=== PATIENT | female | born 1950 | race Caucasian/White ===

== ENCOUNTER → 2018-02-02 | Outpatient (CLI) | payer MEDICARE | END | disposition home or self-care (01) | LOC: CFH 09:21 | PROVIDERS: ATTEND Otolaryngology | DX: J34.2 Deviated nasal septum (principal); J32.0 Chronic maxillary sinusitis; R49.0 Dysphonia; J34.3 Hypertrophy of nasal turbinates | CPT/HCPCS: 70486; 74220 ==

== ENCOUNTER → 2018-07-08 | Outpatient (CLI) | payer MEDICARE | END | disposition home or self-care (01) | LOC: CFH 10:43 | PROVIDERS: ATTEND Family Medicine | DX: Z12.31 Encounter for screening mammogram for malignant neoplasm of breast (principal) | CPT/HCPCS: 77067 ==

== ENCOUNTER → 2019-07-19 | Outpatient (CLI) | payer MEDICARE | END | disposition home or self-care (01) | LOC: CFH 13:04 | PROVIDERS: ATTEND Family Medicine | DX: Z12.31 Encounter for screening mammogram for malignant neoplasm of breast (principal); N64.89 Other specified disorders of breast; N95.9 Unspecified menopausal and perimenopausal disorder | CPT/HCPCS: 76641; 77063; 77067; 77080 ==

== ENCOUNTER → 2020-09-05 | Outpatient (CLI) | payer MEDICARE | END | disposition home or self-care (01) | LOC: CFH 14:22 | PROVIDERS: ATTEND Family Medicine | DX: Z12.39 Encounter for other screening for malignant neoplasm of breast (principal); Z12.31 Encounter for screening mammogram for malignant neoplasm of breast | CPT/HCPCS: 76641; 77063; 77067 ==

== ENCOUNTER 2021-04-18 12:53 | Inpatient (IN) | payer MEDICARE ==
[~2021-04-18] VITALS: Ht 162.6 cm; Wt 62.7 kg
[2021-04-18] VITALS (17 sets, daily range): BP systolic 134–163; BP diastolic 64–74
--- NOTE | 2021-04-18 13:18 | NUR ---
FISHER TROT LINE: EKG COMPLETE IN TRIAGE.
[2021-04-18 14:02] LABS: ALBUMIN 3.6 g/dL (3.4-5.0); ANION GAP 6 mmol/L (5-15); CALCIUM 8.9 mg/dL (8.5-10.1); CHLORIDE 110 mmol/L (98-107)
[2021-04-18 14:07] LABS: MEAN CORPUSCULAR HEMOGLOBIN 18.8 pg (27.0-34.8); MEAN PLATELET VOLUME 8.1 fL (7.4-10.4); PLATELET COUNT 392 x10^3/uL (130-400); RED BLOOD COUNT 2.41 x10^6/uL (3.82-5.3); RED CELL DISTRIBUTION WIDTH 23.3 % (9.6-15.2)
[2021-04-18 14:09] LABS: ALANINE AMINOTRANSFERASE 19 U/L (12-78); ALKALINE PHOSPHATASE 66 U/L (45-117); BILIRUBIN,TOTAL 0.5 mg/dL (0.2-1.0); CREATININE 1.13 mg/dL (0.55-1.02); TOTAL PROTEIN 7.3 g/dL (6.4-8.2); TROPONIN I < 0.015 ng/mL (0.000-0.045)
--- NOTE | 2021-04-18 14:33 | NUR ---
feed adviser: Pt to room via WC from lobby at this time.
[2021-04-18 14:38] LABS: LYMPH#(MANUAL) 0.89 x10^3/uL (1-3.4); LYMPHS% (MANUAL) 12 % (22-44); MONOS#(MANUAL) 0.67 x10^3/uL (0.3-2.7); MONOS% (MANUAL) 9 % (2-9); SEG#(MANUAL) 5.85 x10^3/uL (1.8-6.8); SEGS% (MANUAL) 79 % (42-75)
[2021-04-18 14:40] LABS: ANISOCYTOSIS 2+; HYPOCHROMIA 2+; MICROCYTOSIS 2+
[2021-04-18 14:41] LABS: OVALOCYTES 2+; POLYCHROMASIA 1+
[2021-04-18 14:42] LABS: <PLATELET ESTIMATE> ADEQUATE; <PLT MORPHOLOGY> NORMAL PLT MORPH
[2021-04-18] MEDS ORDERED: PANTOPRAZOLE 40 MG IV IVPush ONE (15:00)
[2021-04-18] MEDS ORDERED: SODIUM CHLORIDE 0.9% 1,000ML IVBOLUS ONE (15:00)
[2021-04-18] MEDS ORDERED: PANTOPRAZOLE 40 MG IV ONE (15:11)
--- NOTE | 2021-04-18 15:16 | NUR ---
REQUEST FOR BLOOD SENT.
--- NOTE | 2021-04-18 15:46 | NUR ---
REPORT TO KENDY TURPIN FOR LUNCH RELIEF.
[2021-04-18 15:48] LABS: ABSOLUTE RETICS # 0.077 x10^6/uL (0.5-2.5); RED BLOOD COUNT 2.38 x10^6/uL (3.82-5.3); RETICULOCYTE COUNT % 3.23 % (0.5-1.5)
[2021-04-18 15:56] LABS: INTERNATIONAL NORMALIZED RATIO 1.04 (0.93-1.1); PROTHROMBIN TIME 11.1 Seconds (9.6-11.5)
--- NOTE | 2021-04-18 16:20 | NUR ---
PT TALKING WITH JANIE ALLAN NOTED AT THIS TIME. IV BLOOD TRANSFUSING. SIDE RAILS UP, CALL LIGHT IN REACH.
[2021-04-18] MEDS ORDERED: ONDANSETRON 2MG/ML, 2ML IVPush PRN (16:30)
[2021-04-18] MEDS ORDERED: hydrALAzine 20 MG/ML, 1ML IVPush PRN (16:30)
[2021-04-18] MEDS ORDERED: ACETAMINOPHEN 325 MG TABLET PO PRN (16:30)
--- NOTE | 2021-04-18 17:02 | NUR ---
Pt up to bedside commode prior to transfer for pt comfort. pt transferring with blood infusing.
[2021-04-18] MEDS ORDERED: ROSU20TA29 PO (19:15)
[2021-04-18] MEDS ORDERED: LEVO50TA PO (19:15)
[2021-04-18] MEDS ORDERED: PANTOPRAZOLE 40 MG IV IVPush SCH (21:00)
[2021-04-18] MEDS: TOLTERODINE LA 2MG CAP.ER.24H PO SCH (21:06)
[2021-04-18] MEDS: SODIUM CHLORIDE FLUSH 10ML SYR IVF SCH (21:08)
[2021-04-18] MEDS: THIAMINE 100 MG in SODIUM CHLORIDE 0.9% 50 ML IV SCH (21:49)
[2021-04-18] MEDS: PANTOPRAZOLE 80 MG in SODIUM CHLORIDE 0.9% 100 ML IV SCH (22:26)
[2021-04-18 22:30] LABS: MICROSCOPIC NOT IND
[2021-04-19 02:00] VITALS: BP 150/72
[2021-04-19 05:03] LABS: MEAN CORPUSCULAR HEMOGLOBIN 23.3 pg (27.0-34.8); MEAN CORPUSCULAR HGB CONC 32.7 g/dL (32.4-35.8); MEAN PLATELET VOLUME 8.4 fL (7.4-10.4); PLATELET COUNT 282 x10^3/uL (130-400); RED BLOOD COUNT 3.32 x10^6/uL (3.82-5.3); RED CELL DISTRIBUTION WIDTH 24.6 % (9.6-15.2)
[2021-04-19 05:16] LABS: CHLORIDE 112 mmol/L (98-107)
[2021-04-19 05:23] LABS: ALANINE AMINOTRANSFERASE 16 U/L (12-78); ALKALINE PHOSPHATASE 57 U/L (45-117); ANION GAP 5 mmol/L (5-15); BILIRUBIN,TOTAL 1.6 mg/dL (0.2-1.0); CALCIUM 8.2 mg/dL (8.5-10.1); CREATININE 0.93 mg/dL (0.55-1.02); TOTAL PROTEIN 6.2 g/dL (6.4-8.2)
[2021-04-19 05:48] LABS: ANISOCYTOSIS 2+; BASOS#(MANUAL) 0.07 x10^3/uL (0-0.1); BASOS% (MANUAL) 1 % (0-1); EOS#(MANUAL) 0.21 x10^3/uL (0.0-0.4); EOS% (MANUAL) 3 % (1-7); HYPOCHROMIA 2+; LYMPH#(MANUAL) 1.12 x10^3/uL (1-3.4); LYMPHS% (MANUAL) 16 % (22-44); MICROCYTOSIS 2+; MONOS#(MANUAL) 1.05 x10^3/uL (0.3-2.7); MONOS% (MANUAL) 15 % (2-9); OVALOCYTES 2+; POLYCHROMASIA 1+; SEG#(MANUAL) 4.55 x10^3/uL (1.8-6.8); SEGS% (MANUAL) 65 % (42-75)
[2021-04-19 05:49] LABS: <PLATELET ESTIMATE> ADEQUATE; <PLT MORPHOLOGY> NORMAL PLT MORPH
[2021-04-19 07:52] VITALS: BP 161/80
[2021-04-19] MEDS: PANTOPRAZOLE 80 MG in SODIUM CHLORIDE 0.9% 100 ML IV SCH ×2 (08:31→20:59)
[2021-04-19] MEDS: TOLTERODINE LA 2MG CAP.ER.24H PO SCH ×2 (08:35→20:44)
[2021-04-19] MEDS: SODIUM CHLORIDE FLUSH 10ML SYR IVF SCH ×2 (08:35→20:34)
[2021-04-19] MEDS ORDERED: PROPOFOL 50 ML ONE (09:43)
[2021-04-19] MEDS ORDERED: LABETALOL 5MG/ML, 20ML IV PRN (10:30)
[2021-04-19] MEDS ORDERED: EPHEDRINE 50 MG/ML, 1ML IVPush PRN (10:30)
[2021-04-19] MEDS ORDERED: FENTANYL PF 100 MCG/2ML IV PRN (10:30)
[2021-04-19] MEDS ORDERED: DIAZEPAM 5 MG/ML, 2ML IVPush PRN (10:30)
[2021-04-19] MEDS ORDERED: PROMETHAZINE 25 MG/ML, 1ML IVPush PRN (10:30)
[2021-04-19] MEDS ORDERED: DIPHENHYDRAMINE 50 MG/ML, 1ML IVPush PRN (10:30)
[2021-04-19] MEDS ORDERED: EPHEDRINE 50 MG/ML, 1ML IM PRN (10:30)
[2021-04-19] MEDS ORDERED: ONDANSETRON 2MG/ML, 2ML IVPush PRN (10:30)
[2021-04-19 12:30] VITALS: BP 162/82
[2021-04-19 13:38] LABS: MEAN CORPUSCULAR HEMOGLOBIN 23.6 pg (27.0-34.8); MEAN CORPUSCULAR HGB CONC 32.8 g/dL (32.4-35.8); MEAN PLATELET VOLUME 8.6 fL (7.4-10.4); PLATELET COUNT 296 x10^3/uL (130-400); RED CELL DISTRIBUTION WIDTH 25.2 % (9.6-15.2)
[2021-04-19 13:56] LABS: ANISOCYTOSIS 2+; BASOS#(MANUAL) 0.21 x10^3/uL (0-0.1); BASOS% (MANUAL) 3 % (0-1); EOS#(MANUAL) 0.41 x10^3/uL (0.0-0.4); EOS% (MANUAL) 6 % (1-7); LYMPH#(MANUAL) 0.62 x10^3/uL (1-3.4); LYMPHS% (MANUAL) 9 % (22-44); MONOS#(MANUAL) 0.69 x10^3/uL (0.3-2.7); MONOS% (MANUAL) 10 % (2-9); SEG#(MANUAL) 4.97 x10^3/uL (1.8-6.8); SEGS% (MANUAL) 72 % (42-75)
[2021-04-19 13:57] LABS: HYPOCHROMIA 2+; MICROCYTOSIS 2+
[2021-04-19 13:58] LABS: <PLATELET ESTIMATE> ADEQUATE; <PLT MORPHOLOGY> NORMAL PLT MORPH; OVALOCYTES 1+; POLYCHROMASIA 1+
[2021-04-19] MEDS ORDERED: GOLYTELY 4,000ML ORAL.SOL PO ONE (18:00)
[2021-04-19] MEDS: THIAMINE 100 MG in SODIUM CHLORIDE 0.9% 50 ML IV SCH (18:21)
[2021-04-19 18:55] VITALS: BP 152/77
[2021-04-19] MEDS ORDERED: ATORVASTATIN 80 MG TABLET PO SCH (21:00)
[2021-04-20 01:31] VITALS: BP 159/68
[2021-04-20] MEDS ORDERED: LEVOTHYROXINE 50 MCG TABLET PO SCH (06:00)
[2021-04-20 06:04] LABS: BASOPHILS % (AUTO) 1 % (0-1); EOSINOPHILS % (AUTO) 5 % (1-7); LYMPHOCYTES % (AUTO) 14 % (22-44); MEAN CORPUSCULAR HEMOGLOBIN 23.1 pg (27.0-34.8); MEAN CORPUSCULAR HGB CONC 32.5 g/dL (32.4-35.8); MONOCYTES % (AUTO) 15 % (2-9); NEUTROPHILS % (AUTO) 65 % (42-75); PLATELET COUNT 288 x10^3/uL (130-400); RED BLOOD COUNT 3.69 x10^6/uL (3.82-5.3); RED CELL DISTRIBUTION WIDTH 26.4 % (9.6-15.2)
[2021-04-20] MEDS: PANTOPRAZOLE 80 MG in SODIUM CHLORIDE 0.9% 100 ML IV SCH (06:06)
[2021-04-20 06:17] LABS: ALBUMIN 3.3 g/dL (3.4-5.0); ANION GAP 7 mmol/L (5-15); CALCIUM 9.1 mg/dL (8.5-10.1); CHLORIDE 108 mmol/L (98-107)
[2021-04-20 06:22] LABS: ALANINE AMINOTRANSFERASE 18 U/L (12-78); ALKALINE PHOSPHATASE 66 U/L (45-117); BILIRUBIN,TOTAL 1.7 mg/dL (0.2-1.0); CREATININE 0.92 mg/dL (0.55-1.02); TOTAL PROTEIN 6.9 g/dL (6.4-8.2)
[2021-04-20 08:10] VITALS: BP 125/72
[2021-04-20] MEDS: SODIUM CHLORIDE FLUSH 10ML SYR IVF SCH (08:31)
[2021-04-20] MEDS: TOLTERODINE LA 2MG CAP.ER.24H PO SCH (08:31)
[2021-04-20] MEDS ORDERED: VALSARTAN 160 MG TABLET PO SCH (09:00)
[2021-04-20] MEDS ORDERED: PANTOPRAZOLE 40MG TABLET PO SCH (09:00)
[2021-04-20 11:51] VITALS: BP 155/78
[2021-04-20] MEDS ORDERED: FENTANYL PF 100 MCG/2ML IV PRN (13:30)
[2021-04-20] MEDS ORDERED: ONDANSETRON 2MG/ML, 2ML IVPush PRN (13:30)
[2021-04-20] MEDS ORDERED: PROPOFOL 50 ML ONE (14:06)
[2021-04-20] MEDS ORDERED: TOLT2CAP PO (15:05)
[2021-04-20] MEDS ORDERED: VALS160T27 PO (15:05)
[2021-04-20 15:42] VITALS: BP 160/83
[2021-04-20 16:15] VITALS: BP 130/72
== END 2021-04-20 17:22 | disposition home or self-care (01) | DRG 812 ==
LOC: ED 13:23 → EDIP 15:18 → 4EST 17:04
PROVIDERS: ADMIT Hospitalist; ATTEND Hospitalist
PROC: 30233N1 Transfusion of Nonautologous Red Blood Cells into Peripheral Vein, Percutaneous Approach (ICD-10-PCS; principal; 2021-04-18)
PROC: 0DJ08ZZ Inspection of Upper Intestinal Tract, Via Natural or Artificial Opening Endoscopic (ICD-10-PCS; 2021-04-19)
PROC: 0DJD8ZZ Inspection of Lower Intestinal Tract, Via Natural or Artificial Opening Endoscopic (ICD-10-PCS; 2021-04-20)
DX: D50.0 Iron deficiency anemia secondary to blood loss (chronic) (principal); I20.9 Angina pectoris, unspecified; N18.2 Chronic kidney disease, stage 2 (mild); E03.9 Hypothyroidism, unspecified; E78.5 Hyperlipidemia, unspecified; I12.9 Hypertensive chronic kidney disease with stage 1 through stage 4 chronic kidney disease, or unspecified chronic kidney disease; I73.9 Peripheral vascular disease, unspecified; K29.80 Duodenitis without bleeding; N32.81 Overactive bladder; R13.10 Dysphagia, unspecified; Z79.899 Other long term (current) drug therapy; Z20.822 Contact with and (suspected) exposure to COVID-19
CPT/HCPCS: 36415; 36430; 71045; 80053; 81003; 82607; 82728; 83540; 83550; 83690; 83735; 84100; 84443; 84484; 85025; 85045; 85610; 86850; 86900; 86923; 87635; 93005; 96361; 96374; 96375; G0378; J2704; J3411; C9113; J7030; P9016